=== PATIENT | female | born 1960 | race Caucasian/White ===

== ENCOUNTER → 2021-06-24 14:44 | Outpatient (BNVA) | payer OTHER, SELFPAY | PROVIDERS: PCP Internal Medicine; Visit Provider Hospitalist ==

== ENCOUNTER 2021-12-31 15:03 | Outpatient (REF) | payer OTHER, SELFPAY ==
--- NOTE | ~2021-12-31 | XR_ITS ---
EXAMINATION: XR CHEST CLINICAL INFORMATION: Latent tuberculosis COMPARISON: None TECHNIQUE: 2 views of the chest were obtained. FINDINGS: Cardiac silhouette is normal in size. Lungs are well aerated. There is no lobar consolidation. No pleural effusion or pneumothorax. No acute osseous abnormality. XR/XR chest 2V IMPRESSION: No acute pulmonary pathology.
== END 2021-12-31 15:04 | disposition home or self-care (01) ==
LOC: HO.XRAY 15:03
PROVIDERS: PCP Internal Medicine; Visit Provider Hospitalist
DX: Z22.7 Latent tuberculosis (principal)
CPT/HCPCS: 71046

== ENCOUNTER → 2023-01-09 09:51 | Outpatient (BNVA) | payer OTHER, SELFPAY | PROVIDERS: PCP Internal Medicine; Visit Provider Dietitian, Registered | DX: E11.65 Type 2 diabetes mellitus with hyperglycemia (principal); Z79.4 Long term (current) use of insulin; Z71.3 Dietary counseling and surveillance | CPT/HCPCS: 97803 ==

== ENCOUNTER 2023-07-10 14:06 | Outpatient (REF) | payer OTHER, SELFPAY ==
--- NOTE | ~2023-07-10 | XR_ITS ---
EXAMINATION: XR CHEST CLINICAL INFORMATION: Latent tuberculosis COMPARISON: 12/31/2021 TECHNIQUE: 2 views of the chest were obtained. FINDINGS: No significant abnormality is noted involving the heart, lungs, mediastinum, bony thorax or soft tissues. XR/XR chest 2V IMPRESSION: Unremarkable examination.
[2023-07-10 17:47] LABS: Influenza A PCR NEGATIVE (Negative); Influenza B PCR NEGATIVE (Negative); Resp Syncy Virus RNA Qual PCR NEGATIVE (Negative); SARS COV2 PCR INHOUSE NEGATIVE (Negative)
== END 2023-07-10 14:07 | disposition home or self-care (01) ==
LOC: HO.XRAY 14:06
PROVIDERS: PCP Internal Medicine; Visit Provider Hospitalist
DX: Z11.52 Encounter for screening for COVID-19 (principal); Z22.7 Latent tuberculosis; J06.9 Acute upper respiratory infection, unspecified; J01.90 Acute sinusitis, unspecified
CPT/HCPCS: 0241U; 71046

== ENCOUNTER 2023-07-10 14:39 | Outpatient (AMB) | payer OTHER, SELFPAY ==
--- NOTE | 2023-07-10 14:53 | A.OFFVIS_ITS ---
Intake Vital Signs 07/10/23 14:59 Height 5 ft 8 in Weight 184 lb 8.43 oz BMI 28.1 Pulse 89 Pulse Source Pulse Oximeter Pulse Oximetry (%) 97 Oxygen Delivery Method Room Air Intake Visit Reasons: Latent Tuberculosis Assistant Secretary Required: No Allergies aspirin Allergy (Severe, Verified 07/10/23 15:00) Passing Out Sulfa (Sulfonamide Antibiotics) Allergy (Severe, Verified 07/10/23 15:00) Swollen Face HPI HPI Comments History of Present Illness Details The patient is a 63-year-old woman with a history of a positive PPD. denies any underlying respiratory issues or any respiratory symptoms. Apparently her son does see a cartridge filler in did have an evaluation including a test for tuberculosis and a resulted that was positive and he was diagnosed with latent TB. therefore the patient although asymptomatic decided to be evaluated in indeed her T spot was positive for exposure to tuberculosis. At the time she was then in [place] and she was seen by a cartridge filler there. She had a workup including an x-ray in based on the fact that she had no symptoms and apparently based on that x-ray she was diagnosed with latent tuberculosis. However, her time in [place] was could be short as she was moving to [place]. She was recently evaluated in the [facility] in did have a repeat chest x-ray in addition to blood work. She did follow-up with a cartridge filler. However, she has been reluctant to start the prophylactic therapy for latent tuberculosis at this time. Primarily due to the pandemic. I explained to the patient that she does have about a 10% chance of reactivation of her tuberculosis throughout her life. She does have increased risk factors including diabetes suppressant her immune system therefore it is very reasonable for her to receive prophylactic therapy. The patient is agreeable this time. We did talk about the 3 different options of prophylactic therapy which include INH for 9 months, rifampin for 6 months with a combination for 3 months. In the meantime will request the records from [facility] to review. As long as the patient continues to be asymptomatic will hold off on starting her prophylactic therapy until the situation with the pandemic improves. I will be meeting with her again in 3-6 months and at that point we will redraw her blood work and repeat her chest x-rays with the plan of starting prophylactic antimicrobial therapy. If the patient develops any symptoms prior to that she is to call for an urgent evaluation. 12/31/2021 the patient is here for pulmonary follow-up visit. Overall she continues to do well. Denies any new respiratory complaints. She did have a chest x-ray today that I personally reviewed demonstrating no active disease. The patient does have a history of positive PPD and this is consistent with latent tuberculosis. The patient has understands her risk. She does want to be treated prophylactically to avoid reactivation specially with her diabetes putting her at higher risk. However, she would like to hold off at this time due to other pressing issues in her life that require her full attention. therefore, specially since she is asymptomatic and chest x-rays okay will follow-up in 6 months and at that point decide to start prophylactic therapy. The different options that she can decide. However, the patient develops any concerning symptoms she is to call the office for an earlier evaluation. 08/15/2022 the patient is here for a pulmonary follow-up visit. She continues to do well. Denies any respiratory complaints. Denies any night sweats or weight loss. Denies any hemoptysis. Cough. She did recently developed COVID- 19. The patient recovered well. While she was sick with COVID-19 she did not have a lot of respiratory symptoms or complaints. The patient was reassured overall. Her biggest issue right now is her uncontrolled diabetes. Her hemoglobin A1c significantly elevated. She is following closely with Endocrinology. She understands that the hyperglycemia will result in immunodeficiencies and risk of infections. Currently she does have the latent tuberculosis diagnosis. She is considering prophylactic therapy. However, she wants to get her sugars and diabetes under control. She needs to follow-up with dietitian to help her with that specially with her carb counting. The patient's last chest x-ray was back in December 2020. I did order another x-ray that she can have specially if she develops any symptoms otherwise she can have in the next several months. 07/10/2023 the patient is here for a pulmonary follow-up visit. Recently she did undergo a breast biopsy for of abnormal finding. She still waiting the results of the pathology. The surgery went well. After the surgery she started developing a sore throat and also upper respiratory congestion. Subsequently worsen with cough and sinus pressure. She feels she has sinusitis. She did test negative for COVID. However, her cough is very significant she has a hard time sleeping. We did swab her in the office so RSV flu and COVID-19. It turned out to be negative. In the meantime will go ahead and treat her for sinusitis. The patient also had a chest x-ray just before the visit. I did personally reviewed. No evidence of any active pulmonary disease. Possibly just some congestion from her acute illness. No evidence of any active tuberculosis. At this point the patient still has not been treated for her latent TB. This is something that will address once the patient clinically is better from her surgery and overall health. Will plan to repeat the chest x-ray next year. if the patient has any worsening symptoms prior to the next visit she is to call the office for an earlier assessment [facility] Medical History (Updated 07/10/23 @ 20:28 by Jorge Womack MD) Uncontrolled diabetes mellitus with hyperglycemia Latent tuberculosis Social History (Updated 06/24/21 @ 15:01 by SADIE Hu) Patient Tobacco Use Status: Former Tobacco user Tobacco use type: Cigarette Years Smoked: 15 years Review of Systems Const Reports difficulty sleeping, Denies fatigue, Denies fever(s), Denies malaise and Denies night sweats ENT Denies change in voice, Denies lip swelling, Denies mouth pain, Reports nasal congestion, Reports nasal discharge, Reports nasal obstruction, Reports post nasal drip, Reports sinus pain, Reports sinus pressure and Denies tongue swelling Card Denies chest pain Resp Reports cough and Denies hemoptysis GI Denies abdominal pain Musc Denies no additional complaints Neuro Denies Neuro-related abnormal movements Psych Denies no additional complaints Endo Denies fatigue Rodolfo/Lymph Denies easy bleeding and Denies lymphadenopathy Aller/Immun Denies lip swelling and Denies tongue swelling Physical Exam Vital Signs: Last Vital Signs Pulse 89 07/10/23 14:59 Pulse Ox 97 07/10/23 14:59 Oxygen Delivery Method Room Air 07/10/23 14:59 BMI result Body Mass Index 28.1 Const General: alert HEENT General nose exam: Abnormal mucous membranes and turbinates present erythematous Neck Neck: Yes normal visual inspection, Yes full ROM and Yes no lymphadenopathy Chest Chest palpation & inspection: normal inspection of the chest Resp Auscultation: clear to auscultation bilaterally Cardio Rate: regular rate Rhythm: regular rhythm Heart sounds: S1 normal heart sound present and S2 normal heart sound present GI Palpation (GI): Soft to palpation and nontender Auscultation: normal bowel sounds Skin General skin exam: rashes and/or lesions noted Assessment & Plan Assessment & Plan (1) Sinusitis: Code(s): J32.9 - Chronic sinusitis, unspecified Qualifiers: Sinusitis location: unspecified location Chronicity: acute Recurrence: non-recurrent Qualified Code(s): J01.90 - Acute sinusitis, unspecified (2) URI (upper respiratory infection): Code(s): J06.9 - Acute upper respiratory infection, unspecified Qualifiers: URI type: unspecified viral URI Qualified Code(s): J06.9 - Acute upper respiratory infection, unspecified (3) Latent tuberculosis: Code(s): Z22.7 - Latent tuberculosis Plan start Augmentin Afrin x 5 days start Mucinex DM continue nasal corticosteroid spray OTC cough medicine repeat CXR in 1 yr or sooner if any worsening respiratory symptoms F/U 10-12 months Orders: Orders SARS-CoV2/FLU/RSV Today J06.9 - Acute upper respiratory infection, unspecified XR chest 2V 10 Months Z22.7 - Latent tuberculosis Medications: New amoxicillin-pot clavulanate 875-125 mg 1 tab PO BID 20 tabs 0RF 10 days codeine-guaifenesin 10-100 mg/5 mL 10 mL PO Q6H PRN 300 mL 0RF cough 10 days Coding Level of Care Code Est Pt Level 4 (81655) Diagnoses Acute non-recurrent sinusitis, unspecified location J01.90 Sinusitis location: unspecified location Chronicity: acute Recurrence: non-recurrent Viral upper respiratory tract infection J06.9 URI type: unspecified viral URI Latent tuberculosis Z22.7 Time Spent (min) 16
[2023-07-10 14:59] VITALS: PULSE 89; O2SAT 97; BMI 28.1
== END 2023-07-10 15:44 | disposition home or self-care (01) ==
PROVIDERS: PCP Internal Medicine; Visit Provider Hospitalist
DX: J01.90 Acute sinusitis, unspecified (principal); J06.9 Acute upper respiratory infection, unspecified; Z22.7 Latent tuberculosis
CPT/HCPCS: 99214